=== PATIENT | female | born 1980 | race Caucasian/White ===

== ENCOUNTER 2016-08-04 13:48 | Emergency (ER) | payer BC ==
--- NOTE | 2016-08-04 14:18 | ERPHSYRPT ---
- History of Present Illness Time Seen by Provider: 08/04/16 14:12 Historian: patient Exam Limitations: no limitations Patient Subjective Stated Complaint: Pt was seen at [facility] at 800 this morning and diagnosed with a kidney stone on the right side. She was given a shot of torodol but no rx for pain medication. She states approx 1 hour ago the pain became unbearable, and she is having difficulties urinating. Triage Nursing Assessment: Pt alert and oriented x3. skin pink warm and dry. afebrile. pt appears to be in a great deal of pain - restless, tearful, pacing. pt states pain gets worse when sitting Physician History: The patient is a 36-year-old female with her mother complaining of a sudden onset of right flank pain that began at 4:30 AM this morning. She was seen in [facility] at 8 AM and was given a Toradol injection for a likely kidney stone. The pain has continued to worsen. She denies nausea or vomiting or diarrhea. She's had a kidney stone in the past that was surgically removed about 3 years ago. She has high blood pressure. Her surgical history is significant for appendectomy and cholecystectomy. Timing/Duration: today, hour(s) (10) Activities at Onset: sleep Quality: sharpness Abdominal Pain Onset Location: flank (right) Pain Radiation: no radiation Severity of Pain-Max: severe Severity of Pain-Current: severe Modifying Factors: Improves With: analgesics Associated Symptoms: denies symptoms Previous symptoms: same symptoms as today Allergies/Adverse Reactions: clemastine fumarate [From Tavist-D] Allergy (Unknown, Verified 08/04/16 13:53) phenylpropanolamine HCl [From Tavist-D] Allergy (Unknown, Verified 08/04/16 13: 53) Home Medications: Amlodipine Besylate 5 mg [Norvasc 5 mg] 5 mg PO DAILY 06/11/12 [History] Lansoprazole [Prevacid] 30 mg PO DAILY 06/11/12 [History] Losartan/Hydrochlorothiazide [Hyzaar 100-12.5 Tablet] 1 each PO DAILY 06/11/12 [ History] Norgestimate-Ethinyl Estradiol [Tri-Sprintec] 1 each PO DAILY 06/11/12 [History] Hx Tetanus, Diphtheria Vaccination/Date Given: (unknown) Hx Influenza Vaccination/Date Given: Yes Hx Pneumococcal Vaccination/Date Given: No - Review of Systems Constitutional: No Fever, No Chills Eyes: No Symptoms Ears, Nose, & Throat: No Symptoms Respiratory: No Cough, No Dyspnea Cardiac: No Chest Pain, No Edema, No Syncope Abdominal/Gastrointestinal: Abdominal Pain Genitourinary Symptoms: Flank Pain, No Dysuria Musculoskeletal: No Back Pain, No Neck Pain Skin: No Rash Neurological: No Dizziness, No Focal Weakness, No Sensory Changes Psychological: No Symptoms Endocrine: No Symptoms Hematologic/Lymphatic: No Symptoms Immunological/Allergic: No Symptoms All Other Systems: Reviewed and Negative - Past Medical History Pertinent Past Medical History: Yes Neurological History: No Pertinent History ENT History: No Pertinent History Cardiac History: Hypertension Respiratory History: No Pertinent History Endocrine Medical History: Diabetes Type II Musculoskeletal History: No Pertinent History GI Medical History: Pancreatitis History: No Pertinent History Psycho-Social History: No Pertinent History Female Reproductive Disorders: No Pertinent History Other Medical History: kidney stones - Past Surgical History Past Surgical History: Yes Neuro Surgical History: No Pertinent History Cardiac: No Pertinent History Respiratory: No Pertinent History Gastrointestinal: Appendectomy, Cholecystectomy Genitourinary: No Pertinent History Musculoskeletal: Other Female Surgical History: No Pertinent History Other Surgical History: knee scoped 3 x, lithotripsy - Social History Smoking Status: Never smoker Exposure to second hand smoke: No Drug Use: none Patient Lives Alone: Yes - Female History Hx Last Menstrual Period: 3 weeks ago - Nursing Vital Signs Nursing Vital Signs: Initial Vital Signs Temperature 99 F Pulse Rate 101 Respiratory Rate 16 Blood Pressure [Left Arm] 134/71 Pain Intensity 10 - Physical Exam General Appearance: moderate distress Eye Exam: PERRL/EOMI, eyes nml inspection Ears, Nose, Throat Exam: normal ENT inspection, pharynx normal, moist mucous membranes Neck Exam: normal inspection, non-tender, supple, full range of motion Respiratory Exam: normal breath sounds, lungs clear, No respiratory distress Cardiovascular Exam: regular rate/rhythm, normal heart sounds Gastrointestinal/Abdomen Exam: soft, No tenderness, No mass Pelvic Exam: not done Rectal Exam: not done Back Exam: CVA tenderness (right) Extremity Exam: normal inspection, normal range of motion, pelvis stable Neurologic Exam: alert, oriented x 3, cooperative, normal mood/affect, nml cerebellar function, sensation nml, No motor deficits Skin Exam: normal color, warm, dry SpO2 Interpretation: normal SpO2: 99 Oxygen Delivery: Room Air - CT Exams Abdomen/Pelvis CT Interpretation: Tele-radiologist Report, Other (new 3 - 4 mm calculus in distal right ureter. No significant hydronephrosis. Per Dr Hernandez.) Ordered Tests: Active Orders 24 hr Category Date Time Status IV Insertion STAT Care 08/04/16 14:20 Active ABDOMEN AND PELVIS W/0 CONTRAS [CT] Stat Exams 08/04/16 15:00 Taken CBC W DIFF Stat Lab 08/04/16 14:25 Completed CMP Stat Lab 08/04/16 14:25 Completed CULTURE,URINE Stat Lab 08/04/16 14:30 Received HCG QUALITATIVE,SERUM Stat Lab 08/04/16 14:25 Completed LIPASE Stat Lab 08/04/16 14:25 Completed Lactic Acid Stat Lab 08/04/16 14:28 Completed UA W/ MICROSCOPIC Stat Lab 08/04/16 14:30 Completed Medication Summary Generic Name Dose Route Start Last Admin Trade Name Freq PRN Reason Stop Dose Admin Tamsulosin HCl 0.4 mg 08/05/16 10:00 08/04/16 14:33 Flomax 0.4 Mg PO 09/04/16 09:59 0.4 mg DAILY SUMMER Administration Discontinued Medications Generic Name Dose Route Start Last Admin Trade Name Freq PRN Reason Stop Dose Admin Hydromorphone HCl 2 mg 08/04/16 14:20 08/04/16 14:33 Hydromorphone 1 Mg/Ml Ampule IV 08/04/16 14:21 2 mg STAT ONE Administration Hydromorphone HCl Confirm 08/04/16 14:25 Hydromorphone 1 Mg/Ml Ampule Administered 08/04/16 14:26 Dose 2 mg .ROUTE .STK-MED ONE Sodium Chloride 1,000 mls @ 999 mls/hr 08/04/16 14:20 08/04/16 14:32 Sodium Chloride 0.9% 1000 Ml IV 08/04/16 15:20 999 mls/hr .Q1H1M STA Administration Sodium Chloride Confirm 08/04/16 14:25 Sodium Chloride 0.9% 1000 Ml Administered 08/04/16 14:26 Dose 1,000 mls @ ud .ROUTE .STK-MED ONE Ondansetron HCl 4 mg 08/04/16 14:20 08/04/16 14:32 Zofran 4 Mg/2 Ml Vial IV 08/04/16 14:21 4 mg STAT ONE Administration Ondansetron HCl Confirm 08/04/16 14:24 Zofran 4 Mg/2 Ml Vial Administered 08/04/16 14:25 Dose 4 mg .ROUTE .STK-MED ONE Tamsulosin HCl Confirm 08/04/16 14:24 Flomax 0.4 Mg Administered 08/04/16 14:25 Dose 0.4 mg .ROUTE .STK-MED ONE Lab/Rad Data: Laboratory Result Diagrams 08/04/16 14:25 08/04/16 14:25 Laboratory Results 08/04/16 08/04/16 08/04/16 Range/Units 14:30 14:28 14:25 WBC (4.0-10.5) K/mm3 RBC (4.1-5.4) M/mm3 Hgb (12.0-16.0) gm/dl Hct (35-47) % MCV (78-100) fl MCH (26-32) pg MCHC (32-36) g/dl RDW (11.5-14.0) % Plt Count (150-450) K/mm3 MPV (6-9.5) fl Gran % (36.0-66.0) % Lymphocytes % (24.0-44.0) % Monocytes % (0.0-12.0) % Eosinophils % (0.00-5.0) % Basophils % (0.0-0.4) % Basophils # (0-0.4) Sodium (136-145) mEq/L Potassium (3.5-5.1) mEq/L Chloride (98-107) mEq/L Carbon Dioxide (21-32) mEq/L Anion Gap (5-15) MEQ/L BUN (9-20) mg/dL Creatinine (0.55-1.30) mg/dl Estimated GFR ML/MIN Glucose (70-110) MG/DL Lactic Acid 1.4 (0.4-2.0) Calcium (8.5-10.1) mg/dL Total Bilirubin (0.2-1.0) mg/dL AST (15-37) U/L ALT (12-78) U/L Alkaline Phosphatase (46-116) U/L Serum Total Protein (6.4-8.2) gm/dL Albumin (3.4-5.0) g/dL Lipase (73-393) U/L Serum , Qual NEGATIVE (Negative) Ur Collection Type VOID Urine Color YELLOW (YELLOW) Urine Appearance SLIGHTLY CLOUDY (CLEAR) Urine pH 5.5 (5-6) Ur Specific [place] 1.010 (1.005-1.025) Urine Protein 30 (Negative) Urine Glucose (UA) 100 (NEGATIVE) mg/dL Urine Ketones TRACE (NEGATIVE) Urine Nitrite NEGATIVE (NEGATIVE) Urine Bilirubin NEGATIVE (NEGATIVE) Urine Urobilinogen 0.2 (0-1) mg/dL Urine WBC (Auto) NEGATIVE (NEGATIVE) Urine RBC (Auto) LARGE (0-5) Oliver/ul Urine Microscopic RBC >100 (0-2) /HPF Ur Epithelial Cells FEW (FEW) /HPF Urine Bacteria FEW (NEGATIVE) /HPF Specimen Received 08/04/16 1430 08/04/16 08/04/16 Range/Units 14:25 14:25 WBC 11.1 H (4.0-10.5) K/mm3 RBC 4.69 (4.1-5.4) M/mm3 Hgb 11.0 L (12.0-16.0) gm/dl Hct 35.2 (35-47) % MCV 75.1 L (78-100) fl MCH 23.4 L (26-32) pg MCHC 31.3 L (32-36) g/dl RDW 15.9 H (11.5-14.0) % Plt Count 440 (150-450) K/mm3 MPV 9.0 (6-9.5) fl Gran % 67.2 H (36.0-66.0) % Lymphocytes % 21.4 L (24.0-44.0) % Monocytes % 7.9 (0.0-12.0) % Eosinophils % 3.2 (0.00-5.0) % Basophils % 0.3 (0.0-0.4) % Basophils # 0.03 (0-0.4) Sodium 134 L (136-145) mEq/L Potassium 3.4 L (3.5-5.1) mEq/L Chloride 96 L (98-107) mEq/L Carbon Dioxide 27.2 (21-32) mEq/L Anion Gap 14.6 (5-15) MEQ/L BUN 16 (9-20) mg/dL Creatinine 1.02 (0.55-1.30) mg/dl Estimated GFR > 60 ML/MIN Glucose 161 H (70-110) MG/DL Lactic Acid (0.4-2.0) Calcium 9.3 (8.5-10.1) mg/dL Total Bilirubin 0.30 (0.2-1.0) mg/dL AST 10 L (15-37) U/L ALT 16 (12-78) U/L Alkaline Phosphatase 73 (46-116) U/L Serum Total Protein 7.7 (6.4-8.2) gm/dL Albumin 3.4 (3.4-5.0) g/dL Lipase 181 (73-393) U/L Serum , Qual (Negative) Ur Collection Type Urine Color (YELLOW) Urine Appearance (CLEAR) Urine pH (5-6) Ur Specific [place] (1.005-1.025) Urine Protein (Negative) Urine Glucose (UA) (NEGATIVE) mg/dL Urine Ketones (NEGATIVE) Urine Nitrite (NEGATIVE) Urine Bilirubin (NEGATIVE) Urine Urobilinogen (0-1) mg/dL Urine WBC (Auto) (NEGATIVE) Urine RBC (Auto) (0-5) Oliver/ul Urine Microscopic RBC (0-2) /HPF Ur Epithelial Cells (FEW) /HPF Urine Bacteria (NEGATIVE) /HPF Specimen Received - Progress Progress: improved Counseled pt/family regarding: lab results, diagnosis, need for follow-up, rad results - Departure Time of Disposition: 16:21 Departure Disposition: Home Clinical Impression: Ureterolithiasis Condition: Stable Critical Care Time: No Additional Instructions: You have a 3 mm kidney stone in the distal segment of your right ureter. The stone is almost into the bladder. You were given IV fluids, Dilaudid 2 mg, Zofran 4 mg by IV, and Flomax 0.4 mg in the ER. Stay well hydrated. Take Ferron one tablet every 4 hours as needed for pain. Strain the urine. Follow- up next week. If the condition worsens, please return to the ER. Prescriptions: Hydrocodone Bit/Acetaminophen [Ferron 5-325 Tablet] 1 each PO Q4H PRN PRN #15 tablet PRN Reason: Pain
[2016-08-04] MEDS ORDERED: Sodium Chloride 0.9% 1000 ML 1,000 ML IV STA (14:20)
[2016-08-04] MEDS ORDERED: Hydromorphone 1 mg/ml Ampule IV ONE (14:20)
[2016-08-04] MEDS ORDERED: Zofran 4 MG/2 ML VIAL IV ONE (14:20)
[2016-08-04] MEDS ORDERED: Flomax 0.4 MG ONE (14:24)
[2016-08-04] MEDS ORDERED: Zofran 4 MG/2 ML VIAL ONE (14:24)
[2016-08-04] MEDS ORDERED: Sodium Chloride 0.9% 1000 ML 1,000 ML ONE (14:25)
[2016-08-04] MEDS ORDERED: Hydromorphone 1 mg/ml Ampule ONE (14:25)
[2016-08-04 14:36] LABS: BASOPHIL % 0.3 % (0.0-0.4); Eosinophil % 3.2 % (0.00-5.0); Granulocytes % 67.2 % (36.0-66.0); Lymphocytes % 21.4 % (24.0-44.0); Mean Cell Volume 75.1 fl (78-100); Monocytes % 7.9 % (0.0-12.0); Platelet Count 440 K/mm3 (150-450); Red Blood Count 4.69 M/mm3 (4.1-5.4); Red Cell Distribution Width 15.9 % (11.5-14.0); White Blood Count 11.1 K/mm3 (4.0-10.5)
[2016-08-04 14:37] LABS: Mean Corpuscular Hemoglobin 23.4 pg (26-32)
[2016-08-04 14:42] LABS: ADD URINE CULTURE? YES (NO); Bacteria FEW /HPF (NEGATIVE); COMPLETE URINE MICROSCOPIC? YES; Collection Type VOID; Epithelial Cells FEW /HPF (FEW); Ph 5.5 (5-6)
[2016-08-04 14:52] LABS: ALBUMIN 3.4 g/dL (3.4-5.0); ALKALINE PHOSPHATASE 73 U/L (46-116); ANION GAP 14.6 MEQ/L (5-15); BLOOD UREA NITROGEN 16 mg/dL (9-20); CHLORIDE 96 mEq/L (98-107); Carbon Dioxide 27.2 mEq/L (21-32); Glucose 161 MG/DL (70-110); LIPASE 181 U/L (73-393); Potassium 3.4 mEq/L (3.5-5.1); SGOT/AST 10 U/L (15-37); SGPT/ALT 16 U/L (12-78); SODIUM 134 mEq/L (136-145); Total Protein 7.7 gm/dL (6.4-8.2)
[2016-08-04 16:41] VITALS: BP 126/77; PULSE 88; O2SAT 97
--- NOTE | 2016-08-04 20:12 | XRAY ---
Indication: Right abdominal pain. History kidney stone. Multiple contiguous axial images obtained through the abdomen and pelvis without using renal stone protocol. Comparison: June 11, 2012. Lung bases demonstrates lingular fibrosis/scarring. Heart is not enlarged. New 3-4 mm distal right ureter calculus approximately 1-2 cm proximal to the UVJ. No significant hydronephrosis/hydroureter. Stable nonobstructing left renal micro-calculus. Noncontrasted stomach and bowel loops appear nonobstructed. Minimal descending diverticulosis without diverticulitis. Again previous cholecystectomy and appendectomy. No free fluid/air. Remaining liver, pancreas, spleen, adrenal glands, kidneys, ureters, bladder, uterus, and aorta appear unremarkable for noncontrast exam. Osseous structures intact again with minimal spinal degenerative changes. Small fatty umbilical hernia. Impression: 1. New 3-4 mm distal right ureter calculus without significant obstructive uropathy. Stable nonobstructing left renal micro-calculus. 2. Incidental minimal descending colonic diverticulosis and fatty umbilical hernia. CTDI 23.68
[2016-08-05] MEDS ORDERED: Flomax 0.4 MG PO SCH (10:00)
== END 2016-08-04 16:41 | disposition home or self-care (01) ==
LOC: ED 13:48
DX: N20.1 Calculus of ureter (principal); R10.9 Unspecified abdominal pain; I10 Essential (primary) hypertension; E11.9 Type 2 diabetes mellitus without complications
CPT/HCPCS: 36000; 36415; 74176; 80053; 81000; 83605; 83690; 84703; 85025; 87086; 96360; 96374; 96375; 99283; 99284; J1170; J2405; A9270-GY

== ENCOUNTER 2020-11-30 17:04 | Observation (INO) | payer OTHER ==
[2020-11-30] MEDS ORDERED: Ventolin Hfa MDI IH ONE (17:24)
[2020-11-30] MEDS ORDERED: VENTOLIN COMMON CANISTER IH ONE (17:30)
[2020-11-30 17:39] LABS: Absolute Neutrophil Ct (ANC) 10.75 (1.4-6.9); BASOPHIL % 0.3 % (0.0-0.4); Basophil (Absolute #) 0.04 (0-0.4); Eosinophil % 3.6 % (0.00-5.0); Eosinophil (Absolute #) 0.51 (0-0.5); Hematocrit 42.4 % (35-47); Lymphocyte (Absolute #) 2.22 (1.0-4.6); Lymphocytes % 15.6 % (24.0-44.0); Mean Cell Volume 87.6 fl (78-100); Mean Corpuscular Hemoglobin 28.9 pg (26-32); Monocyte (Absolute #) 0.75 (0.0-1.3); Monocytes % 5.3 % (0.0-12.0); Neutrophil % 75.2 % (36.0-66.0); Platelet Count 333 K/mm3 (150-450); Red Blood Count 4.84 M/mm3 (4.1-5.4); Red Cell Distribution Width 15.6 % (11.5-14.0); White Blood Count 14.3 K/mm3 (4.0-10.5)
[2020-11-30 17:54] LABS: PROTIME 11.8 SECONDS (9.4-12.5)
[2020-11-30 17:57] LABS: PTT 29.5 SECONDS (25.1-36.5)
[2020-11-30 18:10] LABS: ALBUMIN 4.4 g/dL (3.5-5.0); ALKALINE PHOSPHATASE 50 U/L (38-126); ANION GAP 16.8 MEQ/L (5-15); BLOOD UREA NITROGEN 9 mg/dL (7-17); CHLORIDE 96 mmol/L (98-107); Calcium 9.6 mg/dL (8.4-10.2); Carbon Dioxide 25 mmol/L (22-30); Creatinine 1 0.62 mg/dL (0.52-1.04); EST GLOMERULAR FILTRATION RATE > 60.0 ML/MIN; Glucose 284 mg/dL (74-106); NT PRO BNP 114 pg/mL (0-450); Potassium 3.7 mmol/L (3.5-5.1); SGOT/AST 19 U/L (14-36); SGPT/ALT 20 U/L (0-35); SODIUM 134 mmol/L (137-145); Total Protein 7.5 g/dL (6.3-8.2)
[2020-11-30] MEDS ORDERED: DECADRON 10MG INJ. ONE (18:23)
[2020-11-30] MEDS ORDERED: Magnesium 1 Gm / 100 Ml D5W*** 200 ML IV ONE (18:23)
[2020-11-30] MEDS ORDERED: DECADRON 10MG INJ. IV ONE ×2 (18:23→18:25)
[2020-11-30] MEDS: Magnesium 1 Gm / 100 Ml D5W*** 100 ML IV SCH (18:26)
[2020-11-30] MEDS ORDERED: Magnesium Sulfate 1 GM/2 ML VIAL IV ONE (18:30)
[2020-11-30] MEDS ORDERED: DUONEB 0.5-3 MG/3 ml Neb IH ONE ×2 (20:24→20:48)
--- NOTE | 2020-11-30 20:47 | ERPHSYRPT ---
- History of Present Illness Source: patient Exam Limitations: clinical condition Patient Subjective Stated Complaint: SOB and COVID sx. Triage Nursing Assessment: pt to ED c/o SOB x 1 week with associated covid sx. 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 94% RA, tachepnic, audible wheezing noted on exp. crackles throughout lung st[place] bilaterally. denies pain at this time. other c/o include cough, chest congestion, nasal congestion, body aches/fatigue. Physician History: 40 yo wf w cough/nasal congestion/dyspnea x1wk. Pt is fully vaccinated w Pfizer and had a neg CV19 test last wk in [place] and was tested yesterday. She is on amoxcillin. She has a mild BEYER but denies N/V/D/fever/chest pain. Timing/Duration: other (1wk) Cough Quality/Degree: dry cough Possible Cause: no prior episodes Modifying Factors: Improves With: activity Associated Symptoms: cough, nasal congestion, shortness of breath, wheezing, No fever, No chills, No chest pain/soreness, No dizziness, No earache, No facial pain, No headache, No lightheadedness, No muscle aches, No nasal drainage, No sinus infection, No sore throat Allergies/Adverse Reactions: clemastine fumarate [From Tavist-D] Allergy (Unknown, Verified 11/30/20 17:12) phenylpropanolamine HCl [From Tavist-D] Allergy (Unknown, Verified 11/30/20 17:12) Home Medications: Amlodipine Besylate 5 mg [Norvasc 5 mg] 5 mg PO DAILY 06/11/12 [History] Lansoprazole [Prevacid] 30 mg PO DAILY 06/11/12 [History] Losartan/Hydrochlorothiazide [Hyzaar 100-12.5 Tablet] 1 each PO DAILY 06/11/12 [History] Norgestimate-Ethinyl Estradiol [Tri-Sprintec] 1 each PO DAILY 06/11/12 [History] Hx Tetanus, Diphtheria Vaccination/Date Given: Yes (unknown) Hx Influenza Vaccination/Date Given: Yes Hx Pneumococcal Vaccination/Date Given: No Immunizations Up to Date: Yes Travel Risk - International Travel Have you traveled outside of the country in past 3 weeks: No - Coronavirus Screening Are you exhibiting any of the following symptoms?: Yes Symptoms: Cough: New Onset, Shortness of Breath, Headaches/Body Aches/Fatigue Close contact with a COVID-19 positive Pt in past 14-21 Days: No - Vaccine Status Have you recieved a Covid-19 vaccination: Yes [employer]: Unknown - Vaccination Dates Dates if Unknown: 2 doses, unkn when - Review of Systems Constitutional: No Symptoms Eyes: No Symptoms Ears, Nose, & Throat: No Symptoms, Nose Congestion, Nose Discharge Respiratory: No Symptoms, Cough, Dyspnea, Wheezing Cardiac: No Symptoms Abdominal/Gastrointestinal: No Symptoms Genitourinary Symptoms: No Symptoms Musculoskeletal: No Symptoms Skin: No Symptoms Neurological: No Symptoms Psychological: No Symptoms Endocrine: No Symptoms Hematologic/Lymphatic: No Symptoms Immunological/Allergic: No Symptoms - Past Medical History Pertinent Past Medical History: Yes Neurological History: No Pertinent History ENT History: No Pertinent History Cardiac History: Hypertension Respiratory History: No Pertinent History Endocrine Medical History: Diabetes Type II Musculoskeletal History: No Pertinent History GI Medical History: Pancreatitis History: No Pertinent History Psycho-Social History: No Pertinent History Female Reproductive Disorders: No Pertinent History Other Medical History: kidney stones - Past Surgical History Past Surgical History: Yes Neuro Surgical History: No Pertinent History Cardiac: No Pertinent History Respiratory: No Pertinent History Gastrointestinal: Appendectomy, Cholecystectomy Genitourinary: No Pertinent History Musculoskeletal: Other Female Surgical History: No Pertinent History Other Surgical History: knee scoped 3 x, lithotripsy - Social History Smoking Status: Never smoker Exposure to second hand smoke: No Drug Use: none Patient Lives Alone: Yes Significant Family History: no pertinent family hx - Female History Hx Last Menstrual Period: 1 month ago Hx Now: No - Nursing Vital Signs Nursing Vital Signs: Initial Vital Signs Temperature 98.4 F 11/30/20 17:05 Pulse Rate 119 H 11/30/20 17:05 Respiratory Rate 30 H 11/30/20 17:05 Blood Pressure 181/124 11/30/20 17:05 O2 Sat by Pulse Oximetry 94 L 11/30/20 17:05 Pain Scale Pain Intensity 0 Hypertensive - Physical Exam General Appearance: mild distress Eye Exam: PERRL/EOMI, eyes nml inspection Ears, Nose, Throat Exam: normal ENT inspection, TMs normal, pharynx normal, moist mucous membranes Neck Exam: normal inspection, non-tender, supple, full range of motion, No meningismus, No mass, No Brudzinski, No Kernig's, No carotid bruit Respiratory Exam: respiratory distress (Mild w decreased breath sounds B and scattered wheezes) Cardiovascular Exam: tachycardia Gastrointestinal/Abdomen Exam: soft, normal bowel sounds, No tenderness Back Exam: normal inspection, normal range of motion Extremity Exam: normal inspection, normal range of motion Neurologic Exam: alert, oriented x 3, cooperative, cpc coder II-XII nml as tested, normal mood/affect, nml cerebellar function, nml station & gait, sensation nml, No motor deficits, No sensory deficit Skin Exam: normal color, warm, dry Lymphatic Exam: No adenopathy SpO2 Interpretation: normal SpO2: 95 O2 Delivery: Nasal Cannula - Course Nursing assessment & vital signs reviewed: Yes EKG Interpreted by Me: RATE (Sinus tach/Prolonged QTc/Nonspecific ST-Twave changes) Ordered Tests: Active Orders 24 hr Category Date Time Status EKG-ER Only STAT Care 11/30/20 17:25 Completed Heart-Healthy Diet Diet 11/30/20 Breakfast Active CHEST 1 VIEW (PORTABLE) Stat Exams 11/30/20 17:25 Taken CHEST WITH CONTRAST [CT] Stat Exams 11/30/20 20:06 Taken CBC W DIFF AM.LAB Lab 12/01/20 04:00 Ordered CBC W DIFF Stat Lab 11/30/20 17:24 Completed CMP AM.LAB Lab 12/01/20 04:00 Ordered CMP Stat Lab 11/30/20 17:35 Completed D-DIMER QUANTITATIVE Stat Lab 11/30/20 18:44 Completed Lactic Acid AM.LAB Lab 12/01/20 04:00 Ordered Lactic Acid Stat Lab 11/30/20 17:45 Completed Lactic Acid Stat Lab 11/30/20 19:49 Completed NT PRO BNP Stat Lab 11/30/20 17:35 Completed PROTIME WITH INR Stat Lab 11/30/20 17:35 Completed PTT Stat Lab 11/30/20 17:35 Completed TROPONIN Q3H Lab 11/30/20 17:35 Completed TROPONIN Q3H Lab 11/30/20 20:30 Completed TROPONIN Q3H Lab 11/30/20 23:30 Ordered TROPONIN Q3H Lab 12/01/20 02:30 Ordered TROPONIN Q3H Lab 12/01/20 05:30 Ordered Transfer Order Routine Transfer 11/30/20 Completed Medication Summary Generic Name Dose Route Start Last Admin Trade Name Freq PRN Reason Stop Dose Admin Albuterol/Ipratropium 3 ml 11/30/20 23:00 11/30/20 22:09 Duoneb 0.5-3 Mg/3 Ml Neb IH 12/30/20 22:59 3 ml Q4HRT SUMMER Administration Dexamethasone Sodium Phosphate 4 mg 12/01/20 10:00 Decadron 4 Mg Inj IV 12/31/20 09:59 DAILY SUMMER Enoxaparin Sodium 40 mg 12/01/20 10:00 Enoxaparin Sodium SQ 12/31/20 09:59 DAILY SUMMER Sodium Chloride 1,000 mls @ 100 mls/hr 11/30/20 21:15 Sodium Chloride 0.9% 1000 Ml IV 12/30/20 21:14 .Q10H SUMMER Azithromycin 500 mg in 250 mls @ 250 mls/hr 12/01/20 10:00 Zithromax 500 Mg/ 250 Ml Nacl Premix IV 12/31/20 09:59 Q24H10 SUMMER Ceftriaxone Sodium/Dextrose 1 g in 50 mls @ 100 mls/hr 12/01/20 10:00 Rocephin 1 Gm-D5w 50 Ml Bag IV 12/04/20 09:59 Q24H10 SUMMER Insulin Human Lispro 0 unit 11/30/20 21:04 Humalog SQ 12/30/20 21:03 UD PRN HYPERGLYCEMIA Ondansetron HCl 4 mg 11/30/20 21:04 Zofran 4 Mg/2 Ml Vial IV 12/30/20 21:03 Q6H PRN PRN NAUSEA/VOMITING Pantoprazole Sodium 40 mg 12/01/20 10:00 Protonix 40 Mg Iv IV 12/31/20 09:59 Q24H10 SUMMER Discontinued Medications Generic Name Dose Route Start Last Admin Trade Name Freq PRN Reason Stop Dose Admin Albuterol Sulfate 8 gm 11/30/20 17:24 11/30/20 17:33 Ventolin Hfa Mdi IH 11/30/20 17:25 Not Given STAT ONE Albuterol Sulfate 4 puff 11/30/20 17:30 11/30/20 17:33 Ventolin Common Canister 11/30/20 17:31 4 puff STAT ONE Administration Albuterol/Ipratropium Confirm 11/30/20 20:24 Duoneb 0.5-3 Mg/3 Ml Neb Administered 11/30/20 20:25 Dose 3 ml IH .STK-MED ONE Albuterol/Ipratropium 3 ml 11/30/20 20:48 11/30/20 20:15 Duoneb 0.5-3 Mg/3 Ml Neb IH 11/30/20 20:49 3 ml STAT ONE Administration Dexamethasone Sodium Phosphate 10 mg 11/30/20 18:23 11/30/20 18:26 Decadron 10mg Inj. IV 11/30/20 18:24 10 mg STAT ONE Administration Dexamethasone Sodium Phosphate Confirm 11/30/20 18:23 Decadron 10mg Inj. Administered 11/30/20 18:24 Dose 10 mg .ROUTE .STK-MED ONE Dexamethasone Sodium Phosphate 10 mg 11/30/20 18:25 11/30/20 18:27 Decadron 10mg Inj. IV 11/30/20 18:26 Not Given STAT ONE Magnesium Sulfate/Dextrose Confirm 11/30/20 18:23 Magnesium 1 Gm / 100 Ml D5w Administered 11/30/20 18:24 Dose 200 mls @ ud IV .STK-MED ONE Magnesium Sulfate/Dextrose 100 mls @ 100 mls/hr 11/30/20 18:30 11/30/20 18:26 Magnesium 1 Gm / 100 Ml D5w IV 11/30/20 20:29 100 mls/hr Q1H SUMMER Administration Ceftriaxone Sodium/Dextrose 1 g in 50 mls @ 100 mls/hr 11/30/20 20:53 11/30/20 21:01 Rocephin 1 Gm-D5w 50 Ml Bag IV 11/30/20 21:22 100 mls/hr STAT STA 100 mls/hr Administration Ceftriaxone Sodium/Dextrose Confirm 11/30/20 20:54 Rocephin 1 Gm-D5w 50 Ml Bag Administered 11/30/20 20:55 Dose 1 g in 50 mls @ ud IV .STK-MED ONE Sodium Chloride 1,000 mls @ 999 mls/hr 11/30/20 21:16 11/30/20 21:18 Sodium Chloride 0.9% 1000 Ml IV 11/30/20 22:16 999 mls/hr .Q1H1M STA Administration Magnesium Sulfate 2 gm 11/30/20 18:30 11/30/20 18:26 Magnesium Sulfate 1 Gm/2 Ml Vial IV 11/30/20 18:31 Not Given ONCE ONE Lab/Rad Data: Laboratory Result Diagrams 11/30/20 17:24 11/30/20 17:35 Laboratory Results 11/30/20 11/30/20 11/30/20 Range/Units 20:30 19:49 18:46 WBC (4.0-10.5) K/mm3 RBC (4.1-5.4) M/mm3 Hgb (12.0-16.0) gm/dl Hct (35-47) % MCV (78-100) fl MCH (26-32) pg MCHC (32-36) g/dl RDW (11.5-14.0) % Plt Count (150-450) K/mm3 MPV (7.5-11.0) fl Gran % (36.0-66.0) % Eos # (Auto) (0-0.5) Absolute Lymphs (auto) (1.0-4.6) Absolute Monos (auto) (0.0-1.3) Lymphocytes % (24.0-44.0) % Monocytes % (0.0-12.0) % Eosinophils % (0.00-5.0) % Basophils % (0.0-0.4) % Absolute Granulocytes (1.4-6.9) Basophils # (0-0.4) PT (9.4-12.5) SECONDS INR (0.8-3.0) APTT (25.1-36.5) SECONDS D-Dimer (215-500) ng/mL Sodium (137-145) mmol/L Potassium (3.5-5.1) mmol/L Chloride (98-107) mmol/L Carbon Dioxide (22-30) mmol/L Anion Gap (5-15) MEQ/L BUN (7-17) mg/dL Creatinine (0.52-1.04) mg/dL Estimated GFR ML/MIN Glucose (74-106) mg/dL Lactic Acid 2.8 H (0.4-2.0) Calcium (8.4-10.2) mg/dL Total Bilirubin (0.2-1.3) mg/dL AST (14-36) U/L ALT (0-35) U/L Alkaline Phosphatase (38-126) U/L Troponin I < 0.012 (0.000-0.034) ng/mL NT-Pro-B Natriuret Pep (0-450) pg/mL Serum Total Protein (6.3-8.2) g/dL Albumin (3.5-5.0) g/dL SARS-CoV-2 (PCR) NEGATIVE (NEGATIVE) 11/30/20 11/30/20 11/30/20 Range/Units 18:44 17:45 17:35 WBC (4.0-10.5) K/mm3 RBC (4.1-5.4) M/mm3 Hgb (12.0-16.0) gm/dl Hct (35-47) % MCV (78-100) fl MCH (26-32) pg MCHC (32-36) g/dl RDW (11.5-14.0) % Plt Count (150-450) K/mm3 MPV (7.5-11.0) fl Gran % (36.0-66.0) % Eos # (Auto) (0-0.5) Absolute Lymphs (auto) (1.0-4.6) Absolute Monos (auto) (0.0-1.3) Lymphocytes % (24.0-44.0) % Monocytes % (0.0-12.0) % Eosinophils % (0.00-5.0) % Basophils % (0.0-0.4) % Absolute Granulocytes (1.4-6.9) Basophils # (0-0.4) PT (9.4-12.5) SECONDS INR (0.8-3.0) APTT (25.1-36.5) SECONDS D-Dimer 665 H* (215-500) ng/mL Sodium (137-145) mmol/L Potassium (3.5-5.1) mmol/L Chloride (98-107) mmol/L Carbon Dioxide (22-30) mmol/L Anion Gap (5-15) MEQ/L BUN (7-17) mg/dL Creatinine (0.52-1.04) mg/dL Estimated GFR ML/MIN Glucose (74-106) mg/dL Lactic Acid 3.8 H (0.4-2.0) Calcium (8.4-10.2) mg/dL Total Bilirubin (0.2-1.3) mg/dL AST (14-36) U/L ALT (0-35) U/L Alkaline Phosphatase (38-126) U/L Troponin I < 0.012 (0.000-0.034) ng/mL NT-Pro-B Natriuret Pep (0-450) pg/mL Serum Total Protein (6.3-8.2) g/dL Albumin (3.5-5.0) g/dL SARS-CoV-2 (PCR) (NEGATIVE) 11/30/20 11/30/20 11/30/20 Range/Units 17:35 17:35 17:24 WBC 14.3 H (4.0-10.5) K/mm3 RBC 4.84 (4.1-5.4) M/mm3 Hgb 14.0 (12.0-16.0) gm/dl Hct 42.4 (35-47) % MCV 87.6 (78-100) fl MCH 28.9 (26-32) pg MCHC 33.0 (32-36) g/dl RDW 15.6 H (11.5-14.0) % Plt Count 333 (150-450) K/mm3 MPV 9.0 (7.5-11.0) fl Gran % 75.2 H (36.0-66.0) % Eos # (Auto) 0.51 H (0-0.5) Absolute Lymphs (auto) 2.22 (1.0-4.6) Absolute Monos (auto) 0.75 (0.0-1.3) Lymphocytes % 15.6 L (24.0-44.0) % Monocytes % 5.3 (0.0-12.0) % Eosinophils % 3.6 (0.00-5.0) % Basophils % 0.3 (0.0-0.4) % Absolute Granulocytes 10.75 H (1.4-6.9) Basophils # 0.04 (0-0.4) PT 11.8 (9.4-12.5) SECONDS INR 1.00 (0.8-3.0) APTT 29.5 (25.1-36.5) SECONDS D-Dimer (215-500) ng/mL Sodium 134 L (137-145) mmol/L Potassium 3.7 (3.5-5.1) mmol/L Chloride 96 L (98-107) mmol/L Carbon Dioxide 25 (22-30) mmol/L Anion Gap 16.8 H (5-15) MEQ/L BUN 9 (7-17) mg/dL Creatinine 0.62 (0.52-1.04) mg/dL Estimated GFR > 60.0 ML/MIN Glucose 284 H (74-106) mg/dL Lactic Acid (0.4-2.0) Calcium 9.6 (8.4-10.2) mg/dL Total Bilirubin 0.40 (0.2-1.3) mg/dL AST 19 (14-36) U/L ALT 20 (0-35) U/L Alkaline Phosphatase 50 (38-126) U/L Troponin I (0.000-0.034) ng/mL NT-Pro-B Natriuret Pep 114 (0-450) pg/mL Serum Total Protein 7.5 (6.3-8.2) g/dL Albumin 4.4 (3.5-5.0) g/dL SARS-CoV-2 (PCR) (NEGATIVE) - Progress Progress: improved Progress Note: 11/30/20 21:[address] Gutierres 11/30/20 21:02 Proventil HFA 2puffs x2 10mg IV Decadron Duoneb after neg CV19 1gm IV Rocephin 11/30/20 22:53 1L NS bolus Discussed with : Harley Counseled pt/family regarding: lab results, diagnosis, rad results - Departure Departure Disposition: Observation Clinical Impression: Pneumonia Condition: Stable Critical Care Time: Yes Critical Care Time(excluding separately billable procedures): Critical 30-74 mins
[2020-11-30] MEDS ORDERED: ROCEPHIN 1 Gm-D5w 50 ml Bag** 1 G/50 ML IVPB IV STA (20:53)
[2020-11-30] MEDS ORDERED: ROCEPHIN 1 Gm-D5w 50 ml Bag** 1 G/50 ML IVPB IV ONE (20:54)
[2020-11-30] MEDS ORDERED: Zofran 4 MG/2 ML VIAL IV PRN (21:04)
[2020-11-30] MEDS ORDERED: HUMALOG SQ PRN (21:04)
[2020-11-30] MEDS ORDERED: Sodium Chloride 0.9% 1000 ML 1,000 ML IV STA (21:16)
[2020-11-30] MEDS: DUONEB 0.5-3 MG/3 ml Neb IH SCH (22:09)
[2020-12-01] MEDS: Klor Con 10 MEQ PO SCH ×2 (00:03→21:18)
[2020-12-01] MEDS: HUMALOG SQ PRN ×5 (00:29→21:18)
[2020-12-01] MEDS: DUONEB 0.5-3 MG/3 ml Neb IH SCH ×5 (02:03→19:31)
[2020-12-01] MEDS: TYLENOL 325 MG PO PRN ×3 (02:11→18:31)
[2020-12-01 03:08] LABS: Absolute Neutrophil Ct (ANC) 13.18 (1.4-6.9); BASOPHIL % 0.1 % (0.0-0.4); Basophil (Absolute #) 0.02 (0-0.4); Eosinophil % 0.1 % (0.00-5.0); Eosinophil (Absolute #) 0.02 (0-0.5); Hematocrit 41.6 % (35-47); Hemoglobin 13.7 gm/dl (12.0-16.0); Lymphocyte (Absolute #) 0.62 (1.0-4.6); Lymphocytes % 4.4 % (24.0-44.0); Mean Cell Volume 87.8 fl (78-100); Mean Corpuscular Hemoglobin 28.9 pg (26-32); Mean Corpuscular Hgb Concent. 32.9 g/dl (32-36); Monocyte (Absolute #) 0.22 (0.0-1.3); Monocytes % 1.6 % (0.0-12.0); Neutrophil % 93.8 % (36.0-66.0); Platelet Count 315 K/mm3 (150-450); Red Blood Count 4.74 M/mm3 (4.1-5.4); Red Cell Distribution Width 15.4 % (11.5-14.0); White Blood Count 14.1 K/mm3 (4.0-10.5)
[2020-12-01 04:16] LABS: ALBUMIN 4.4 g/dL (3.5-5.0); ALKALINE PHOSPHATASE 58 U/L (38-126); ANION GAP 20.5 MEQ/L (5-15); BLOOD UREA NITROGEN 9 mg/dL (7-17); CHLORIDE 97 mmol/L (98-107); Calcium 9.5 mg/dL (8.4-10.2); Carbon Dioxide 19 mmol/L (22-30); EST GLOMERULAR FILTRATION RATE > 60.0 ML/MIN; Glucose 323 mg/dL (74-106); Potassium 4.3 mmol/L (3.5-5.1); SGOT/AST 26 U/L (14-36); SODIUM 132 mmol/L (137-145); Total Protein 7.5 g/dL (6.3-8.2)
[2020-12-01 04:22] LABS: SGPT/ALT 30 U/L (0-35)
--- NOTE | 2020-12-01 08:42 | PCM.HP ---
History of Present Illness - Chief Complaint Chief Complaint: Pneumonia History of Present Illness: is a 40 year old female with no local physician, she has had a cough and worsening illness for 3 weeks. she has had multiple covid tests that were negative including last night, she is fully vaccinated. She has a cough and worsening shortness of breath, she became very short of breath and presented to the ER last night, she had fever initially with ear and sinus symptoms, has been on augmentin. she is not a smoker, has no history of asthma. she is a diabetic and on hypertension meds, hx of iron def anemia with infusions via Dr Solis in the past. - Review of Systems Constitutional: No Fever, No Chills Eyes: No Symptoms Ears, Nose, & Throat: No Symptoms Respiratory: Cough, Short Of Breath Cardiac: No Chest Pain, No Edema, No Syncope Abdominal/Gastrointestinal: No Abdominal Pain, No Nausea, No Vomiting, No Diarrhea Genitourinary Symptoms: No Dysuria Skin: No Rash All Other Systems: Reviewed and Negative Medications & Allergies Home Medications: Home Medication List Amox Tr/Potass Clav. 875 mg [Augmentin 875-125 Tablet] 875 mg PO BID 11/30/20 [History Confirmed 11/30/20] Chlorthalidone 25 mg PO DAILY 11/30/20 [History Confirmed 11/30/20] Insulin Glargine,Hum.rec.anlog [Silvio Salas] 42 units SQ DAILY 11/30/20 [History Confirmed 11/30/20] Lansoprazole [Prevacid] 30 mg PO DAILY 11/30/20 [History Confirmed 11/30/20] Levothyroxine Sodium [Levothyroxine] 25 mcg PO DAILY 11/30/20 [History Confirmed 11/30/20] Liraglutide [Victoza 2-Fredrick] 1.8 units SQ DAILY 11/30/20 [History Confirmed 11/30/20] Nebivolol HCl [Bystolic] 10 mg PO DAILY 11/30/20 [History Confirmed 11/30/20] Non-Formulary Drug [Non-Formulary Bulk Item] 1 tab PO DAILY 11/30/20 [History Confirmed 11/30/20] Potassium Chloride 20 meq PO BID 11/30/20 [History Confirmed 11/30/20] Allergies/Adverse Reactions: Allergies Allergy/AdvReac Type Severity Reaction Status Date / Time clemastine fumarate Allergy Unknown Verified 11/30/20 17:12 [From Tavist-D] phenylpropanolamine HCl Allergy Unknown Verified 11/30/20 17:12 [From Tavist-D] - Past Medical History Past Medical History: Yes Neurological History: No Pertinent History ENT History: No Pertinent History Cardiac History: Hypertension Respiratory History: No Pertinent History Endocrine Medical History: Diabetes Type II Musculoskelatal History: No Pertinent History GI Medical History: Pancreatitis History: No Pertinent History Pyscho-Social History: No Pertinent History Reproductive Disorders: No Pertinent History Comment: kidney stones - Female History Hx Last Menstrual Period: 1 month ago Are you now?: No - Past Surgical History Past Surgical History: Yes Neuro Surgical History: No Pertinent History Cardiac History: No Pertinent History Respiratory Surgery: No Pertinent History GI Surgical History: Appendectomy, Cholecystectomy Genitourinary Surgical Hx: No Pertinent History Musculskeletal Surgical Hx: Other Female Surgical History: No Pertinent History Other Surgical History: knee scoped 3 x, lithotripsy - Social History Smoking Status: Never smoker Exposure to second hand smoke: No Alcohol: None Drug Use: none Significant Family History: no pertinent family hx - Physical Exam Vital Signs: Vital Signs - 24 hr Temp Pulse Resp BP Pulse Ox 12/01/20 08:23 95 H 21 95 12/01/20 07:56 96.4 F 105 H 18 141/78 94 L 12/01/20 03:41 97.8 F 108 H 26 H 132/66 94 L 12/01/20 02:05 106 H 24 94 L 11/30/20 22:53 95 11/30/20 22:30 97.9 F 120 H 20 141/73 97 11/30/20 22:10 102 H 20 96 11/30/20 20:15 107 H 24 94 L 11/30/20 20:00 109 H 28 H 155/92 95 11/30/20 19:00 87 28 H 149/91 94 L 11/30/20 18:21 107 H 30 H 135/89 94 L 11/30/20 18:20 98.4 F 107 H 28 H 135/89 94 L 11/30/20 17:37 115 H 24 93 L 11/30/20 17:05 98.4 F 119 H 30 H 181/124 96 General Appearance: no apparent distress, obese Neurologic Exam: alert, oriented x 3, cooperative Respiratory Exam: diminished breath sounds, wheezing Cardiovascular Exam: regular rate/rhythm, normal heart sounds, normal peripheral pulses Gastrointestinal/Abdomen Exam: soft, normal bowel sounds, No tenderness, No mass Extremity Exam: normal inspection, normal range of motion, pelvis stable Skin Exam: normal color, warm, dry, No rash Results - Labs Lab/Micro Results: Lab Results-Last 24 Hours 11/30/20 11/30/20 11/30/20 Range/Units 00:00 17:24 17:35 WBC 14.3 H (4.0-10.5) K/mm3 RBC 4.84 (4.1-5.4) M/mm3 Hgb 14.0 (12.0-16.0) gm/dl Hct 42.4 (35-47) % MCV 87.6 (78-100) fl MCH 28.9 (26-32) pg MCHC 33.0 (32-36) g/dl RDW 15.6 H (11.5-14.0) % Plt Count 333 (150-450) K/mm3 MPV 9.0 (7.5-11.0) fl Gran % 75.2 H (36.0-66.0) % Eos # (Auto) 0.51 H (0-0.5) Absolute Lymphs (auto) 2.22 (1.0-4.6) Absolute Monos (auto) 0.75 (0.0-1.3) Lymphocytes % 15.6 L (24.0-44.0) % Monocytes % 5.3 (0.0-12.0) % Eosinophils % 3.6 (0.00-5.0) % Basophils % 0.3 (0.0-0.4) % Absolute Granulocytes 10.75 H (1.4-6.9) Basophils # 0.04 (0-0.4) PT (9.4-12.5) SECONDS INR (0.8-3.0) APTT (25.1-36.5) SECONDS D-Dimer (215-500) ng/mL Sodium 134 L (137-145) mmol/L Potassium 3.7 (3.5-5.1) mmol/L Chloride 96 L (98-107) mmol/L Carbon Dioxide 25 (22-30) mmol/L Anion Gap 16.8 H (5-15) MEQ/L BUN 9 (7-17) mg/dL Creatinine 0.62 (0.52-1.04) mg/dL Estimated GFR > 60.0 ML/MIN Glucose 284 H (74-106) mg/dL Lactic Acid (0.4-2.0) Calcium 9.6 (8.4-10.2) mg/dL Total Bilirubin 0.40 (0.2-1.3) mg/dL AST 19 (14-36) U/L ALT 20 (0-35) U/L Alkaline Phosphatase 50 (38-126) U/L Troponin I < 0.012 (0.000-0.034) ng/mL NT-Pro-B Natriuret Pep 114 (0-450) pg/mL Serum Total Protein 7.5 (6.3-8.2) g/dL Albumin 4.4 (3.5-5.0) g/dL SARS-CoV-2 (PCR) (NEGATIVE) 11/30/20 11/30/20 11/30/20 Range/Units 17:35 17:35 17:45 WBC (4.0-10.5) K/mm3 RBC (4.1-5.4) M/mm3 Hgb (12.0-16.0) gm/dl Hct (35-47) % MCV (78-100) fl MCH (26-32) pg MCHC (32-36) g/dl RDW (11.5-14.0) % Plt Count (150-450) K/mm3 MPV (7.5-11.0) fl Gran % (36.0-66.0) % Eos # (Auto) (0-0.5) Absolute Lymphs (auto) (1.0-4.6) Absolute Monos (auto) (0.0-1.3) Lymphocytes % (24.0-44.0) % Monocytes % (0.0-12.0) % Eosinophils % (0.00-5.0) % Basophils % (0.0-0.4) % Absolute Granulocytes (1.4-6.9) Basophils # (0-0.4) PT 11.8 (9.4-12.5) SECONDS INR 1.00 (0.8-3.0) APTT 29.5 (25.1-36.5) SECONDS D-Dimer (215-500) ng/mL Sodium (137-145) mmol/L Potassium (3.5-5.1) mmol/L Chloride (98-107) mmol/L Carbon Dioxide (22-30) mmol/L Anion Gap (5-15) MEQ/L BUN (7-17) mg/dL Creatinine (0.52-1.04) mg/dL Estimated GFR ML/MIN Glucose (74-106) mg/dL Lactic Acid 3.8 H (0.4-2.0) Calcium (8.4-10.2) mg/dL Total Bilirubin (0.2-1.3) mg/dL AST (14-36) U/L ALT (0-35) U/L Alkaline Phosphatase (38-126) U/L Troponin I < 0.012 (0.000-0.034) ng/mL NT-Pro-B Natriuret Pep (0-450) pg/mL Serum Total Protein (6.3-8.2) g/dL Albumin (3.5-5.0) g/dL SARS-CoV-2 (PCR) (NEGATIVE) 11/30/20 11/30/20 11/30/20 Range/Units 18:44 18:46 19:49 WBC (4.0-10.5) K/mm3 RBC (4.1-5.4) M/mm3 Hgb (12.0-16.0) gm/dl Hct (35-47) % MCV (78-100) fl MCH (26-32) pg MCHC (32-36) g/dl RDW (11.5-14.0) % Plt Count (150-450) K/mm3 MPV (7.5-11.0) fl Gran % (36.0-66.0) % Eos # (Auto) (0-0.5) Absolute Lymphs (auto) (1.0-4.6) Absolute Monos (auto) (0.0-1.3) Lymphocytes % (24.0-44.0) % Monocytes % (0.0-12.0) % Eosinophils % (0.00-5.0) % Basophils % (0.0-0.4) % Absolute Granulocytes (1.4-6.9) Basophils # (0-0.4) PT (9.4-12.5) SECONDS INR (0.8-3.0) APTT (25.1-36.5) SECONDS D-Dimer 665 H* (215-500) ng/mL Sodium (137-145) mmol/L Potassium (3.5-5.1) mmol/L Chloride (98-107) mmol/L Carbon Dioxide (22-30) mmol/L Anion Gap (5-15) MEQ/L BUN (7-17) mg/dL Creatinine (0.52-1.04) mg/dL Estimated GFR ML/MIN Glucose (74-106) mg/dL Lactic Acid 2.8 H (0.4-2.0) Calcium (8.4-10.2) mg/dL Total Bilirubin (0.2-1.3) mg/dL AST (14-36) U/L ALT (0-35) U/L Alkaline Phosphatase (38-126) U/L Troponin I (0.000-0.034) ng/mL NT-Pro-B Natriuret Pep (0-450) pg/mL Serum Total Protein (6.3-8.2) g/dL Albumin (3.5-5.0) g/dL SARS-CoV-2 (PCR) NEGATIVE (NEGATIVE) 11/30/20 12/01/20 12/01/20 Range/Units 20:30 03:00 03:04 WBC (4.0-10.5) K/mm3 RBC (4.1-5.4) M/mm3 Hgb (12.0-16.0) gm/dl Hct (35-47) % MCV (78-100) fl MCH (26-32) pg MCHC (32-36) g/dl RDW (11.5-14.0) % Plt Count (150-450) K/mm3 MPV (7.5-11.0) fl Gran % (36.0-66.0) % Eos # (Auto) (0-0.5) Absolute Lymphs (auto) (1.0-4.6) Absolute Monos (auto) (0.0-1.3) Lymphocytes % (24.0-44.0) % Monocytes % (0.0-12.0) % Eosinophils % (0.00-5.0) % Basophils % (0.0-0.4) % Absolute Granulocytes (1.4-6.9) Basophils # (0-0.4) PT (9.4-12.5) SECONDS INR (0.8-3.0) APTT (25.1-36.5) SECONDS D-Dimer (215-500) ng/mL Sodium (137-145) mmol/L Potassium (3.5-5.1) mmol/L Chloride (98-107) mmol/L Carbon Dioxide (22-30) mmol/L Anion Gap (5-15) MEQ/L BUN (7-17) mg/dL Creatinine (0.52-1.04) mg/dL Estimated GFR ML/MIN Glucose (74-106) mg/dL Lactic Acid 6.4 H (0.4-2.0) Calcium (8.4-10.2) mg/dL Total Bilirubin (0.2-1.3) mg/dL AST (14-36) U/L ALT (0-35) U/L Alkaline Phosphatase (38-126) U/L Troponin I < 0.012 < 0.012 (0.000-0.034) ng/mL NT-Pro-B Natriuret Pep (0-450) pg/mL Serum Total Protein (6.3-8.2) g/dL Albumin (3.5-5.0) g/dL SARS-CoV-2 (PCR) (NEGATIVE) 12/01/20 12/01/20 12/01/20 Range/Units 03:04 03:04 04:30 WBC 14.1 H (4.0-10.5) K/mm3 RBC 4.74 (4.1-5.4) M/mm3 Hgb 13.7 (12.0-16.0) gm/dl Hct 41.6 (35-47) % MCV 87.8 (78-100) fl MCH 28.9 (26-32) pg MCHC 32.9 (32-36) g/dl RDW 15.4 H (11.5-14.0) % Plt Count 315 (150-450) K/mm3 MPV 9.0 (7.5-11.0) fl Gran % 93.8 H (36.0-66.0) % Eos # (Auto) 0.02 (0-0.5) Absolute Lymphs (auto) 0.62 L (1.0-4.6) Absolute Monos (auto) 0.22 (0.0-1.3) Lymphocytes % 4.4 L (24.0-44.0) % Monocytes % 1.6 (0.0-12.0) % Eosinophils % 0.1 (0.00-5.0) % Basophils % 0.1 (0.0-0.4) % Absolute Granulocytes 13.18 H (1.4-6.9) Basophils # 0.02 (0-0.4) PT (9.4-12.5) SECONDS INR (0.8-3.0) APTT (25.1-36.5) SECONDS D-Dimer (215-500) ng/mL Sodium 132 L (137-145) mmol/L Potassium 4.3 (3.5-5.1) mmol/L Chloride 97 L (98-107) mmol/L Carbon Dioxide 19 L (22-30) mmol/L Anion Gap 20.5 H (5-15) MEQ/L BUN 9 (7-17) mg/dL Creatinine 0.60 (0.52-1.04) mg/dL Estimated GFR > 60.0 ML/MIN Glucose 323 H (74-106) mg/dL Lactic Acid (0.4-2.0) Calcium 9.5 (8.4-10.2) mg/dL Total Bilirubin 0.50 (0.2-1.3) mg/dL AST 26 (14-36) U/L ALT 30 (0-35) U/L Alkaline Phosphatase 58 (38-126) U/L Troponin I < 0.012 (0.000-0.034) ng/mL NT-Pro-B Natriuret Pep (0-450) pg/mL Serum Total Protein 7.5 (6.3-8.2) g/dL Albumin 4.4 (3.5-5.0) g/dL SARS-CoV-2 (PCR) (NEGATIVE) Accuchecks Date 12/01/20 - Radiology Impressions Radiology Exams & Impressions: Radiology Procedures Category Date Time Status CHEST 1 VIEW (PORTABLE) Stat Exams 11/30/20 17:25 Taken CHEST WITH CONTRAST [CT] Stat Exams 11/30/20 20:06 Taken - Other Procedures and Tests Respiratory Therapy 11/30/20 17:37 Respiratory Therapy Assessment DAILY 11/30/20 21:04 Oxygen Nasal Cannula 2 lpm Assessment/Plan (1) Pneumonia Current Visit: Yes Status: Acute Assessment & Plan: continue rocephin/zithromax, elevated lactic acid is likely secondary to diabetes and steroids. will monitor, clinically she is feeling better. Code(s): J18.9 - PNEUMONIA, UNSPECIFIED ORGANISM (2) Bronchospasm, acute Current Visit: Yes Status: Acute Assessment & Plan: nebs, steroids (3) Diabetes mellitus Current Visit: Yes Status: Acute Assessment & Plan: continue toujeo, add sliding scale coverage Code(s): E11.9 - TYPE 2 DIABETES MELLITUS WITHOUT COMPLICATIONS
--- NOTE | 2020-12-01 08:58 | XRAY ---
Indication: Short of breath. Elevated d-dimer. Suspect Covid 19. Multiple contiguous axial images obtained through the chest using 100 cc Isovue 370 contrast and PE protocol. Comparison: None There is adequate opacification of the pulmonary arteries to include the lobar and segmental branches. No pulmonary embolus. Heart not enlarged. Aorta is normal in course and caliber. No pathologic mediastinal/hilar lymphadenopathy. Lungs demonstrates mild patchy groundglass airspace disease bilaterally. Greatest extent seen in both lower lobes. No consolidation or effusion. Bony thorax intact with minimal degenerative changes throughout the spine. Limited upper abdomen demonstrates fatty liver and caudate lobe hepatic cysts versus hemangiomas. Impression: 1. Negative pulmonary embolus. 2. Patchy bilateral groundglass airspace disease. Commonly reported imaging features of Covid 19 pneumonia are present. Other processes such as influenza pneumonia and organizing pneumonia, as can be seen with drug toxicity and connective tissue disease, can cause a similar imaging pattern. 3. Incidental fatty liver and hepatic cysts versus hemangiomas.
--- NOTE | 2020-12-01 09:03 | XRAY ---
Indication: Dyspnea. Suspect Covid 19. Comparison: One day earlier. Portable chest now demonstrates CT proven patchy bibasilar groundglass airspace disease without consolidation/large effusion. Remaining heart and lungs unremarkable.
[2020-12-01] MEDS ORDERED: NON-FORMULARY ITEM (Levothyroxine Sodium [Levothyroxine] 25 MCG) PO SCH (10:00)
[2020-12-01] MEDS ORDERED: NON-FORMULARY ITEM (Lansoprazole [Prevacid] 30 MG) PO SCH (10:00)
[2020-12-01] MEDS ORDERED: INSULIN GLARGINE HUM REC ANLOG 42 UNIT SQ SCH (10:00)
[2020-12-01] MEDS ORDERED: SYNTHROID 25 MCG PO SCH (10:00)
[2020-12-01] MEDS ORDERED: Decadron 4 MG INJ IV SCH (10:00)
[2020-12-01] MEDS ORDERED: Protonix 40MG Tablet PO SCH (10:00)
[2020-12-01] MEDS ORDERED: Bystolic 5 MG PO SCH (10:00)
[2020-12-01] MEDS ORDERED: NON-FORMULARY ITEM (Chlorthalidone [Chlorthalidone] 25 MG) PO SCH (10:00)
[2020-12-01] MEDS ORDERED: Zithromax 500 MG/ 250 ML NaCl Premix 500 MG/250 ML IVPB IV SCH (10:00)
[2020-12-01] MEDS ORDERED: Lantus Insulin SQ SCH (10:00)
[2020-12-01] MEDS ORDERED: ENOXAPARIN SODIUM SQ SCH (10:00)
[2020-12-01] MEDS ORDERED: NON-FORMULARY ITEM (Nebivolol Hcl [Bystolic] 10 MG) PO SCH (10:00)
[2020-12-01] MEDS ORDERED: PROTONIX 40 MG IV IV SCH (10:00)
[2020-12-01] MEDS ORDERED: NON-FORMULARY ITEM PO SCH (10:00)
[2020-12-01] MEDS: Sodium Chloride 0.9% 1000 ML 1,000 ML IV SCH ×2 (10:09→20:32)
[2020-12-01] MEDS ORDERED: PATIENT OWN MEDICATION PO SCH (11:30)
[2020-12-01] MEDS ORDERED: ROCEPHIN 1 Gm-D5w 50 ml Bag** 1 G/50 ML IVPB IV SCH (22:00)
[2020-12-02] MEDS: DUONEB 0.5-3 MG/3 ml Neb IH SCH ×3 (00:51→06:50)
[2020-12-02 05:02] LABS: Absolute Neutrophil Ct (ANC) 9.94 (1.4-6.9); BASOPHIL % 0.2 % (0.0-0.4); Basophil (Absolute #) 0.02 (0-0.4); Eosinophil % 1.4 % (0.00-5.0); Eosinophil (Absolute #) 0.18 (0-0.5); Hematocrit 38.2 % (35-47); Hemoglobin 12.5 gm/dl (12.0-16.0); Lymphocytes % 14.7 % (24.0-44.0); Mean Corpuscular Hemoglobin 29.1 pg (26-32); Mean Corpuscular Hgb Concent. 32.7 g/dl (32-36); Monocyte (Absolute #) 0.88 (0.0-1.3); Monocytes % 6.8 % (0.0-12.0); Neutrophil % 76.9 % (36.0-66.0); Platelet Count 297 K/mm3 (150-450); Red Blood Count 4.29 M/mm3 (4.1-5.4); Red Cell Distribution Width 15.2 % (11.5-14.0); White Blood Count 12.9 K/mm3 (4.0-10.5)
[2020-12-02 05:50] LABS: ALBUMIN 3.9 g/dL (3.5-5.0); ALKALINE PHOSPHATASE 44 U/L (38-126); ANION GAP 14.9 MEQ/L (5-15); BLOOD UREA NITROGEN 14 mg/dL (7-17); CHLORIDE 98 mmol/L (98-107); Calcium 8.8 mg/dL (8.4-10.2); Carbon Dioxide 25 mmol/L (22-30); Creatinine 1 0.63 mg/dL (0.52-1.04); EST GLOMERULAR FILTRATION RATE > 60.0 ML/MIN; Glucose 209 mg/dL (74-106); Potassium 3.7 mmol/L (3.5-5.1); SGOT/AST 15 U/L (14-36); SGPT/ALT 16 U/L (0-35); SODIUM 134 mmol/L (137-145); Total Protein 6.7 g/dL (6.3-8.2)
[2020-12-02] MEDS: Sodium Chloride 0.9% 1000 ML 1,000 ML IV SCH (06:55)
[2020-12-02 07:58] VITALS: BP 125/71; PULSE 86
--- NOTE | 2020-12-02 08:24 | PCM.DS ---
Discharge Summary Date of Admission: 11/30/20 21:42 Admitting Physician: SADAF VALDEZ Primary Care Provider: RAJI JONES Allergies Allergies clemastine fumarate [From Tavist-D] Allergy (Unknown, Verified 11/30/20 17:12) phenylpropanolamine HCl [From Tavist-D] Allergy (Unknown, Verified 11/30/20 17:12) Hospital Summary - Hospital Course Hospital Course: patient feeling much better, her breath sounds are clear and I removed her oxygen during rounds this morning, she was on 1L, on room air she is maintaining saturation of 96-98%. she is in no distress - Vitals & Intake/Output Vital Signs: Vital Signs Temperature 96.2 F 12/02/20 07:57 Pulse Rate 86 12/02/20 07:57 Respiratory Rate 18 12/02/20 07:57 Blood Pressure 125/71 12/02/20 07:57 O2 Sat by Pulse Oximetry 98 12/02/20 07:57 Intake & Output: Intake & Output 11/29/20 11/30/20 12/01/20 12/02/20 11:59 11:59 11:59 11:59 Intake Total 1084 3882 Output Total 1600 2200 Balance -516 1682 Weight 136.078 kg - Lab Result Diagrams: 12/02/20 04:32 12/02/20 04:32 Lab Results-Last 24 Hrs: Lab Results-Last 24 Hours 12/01/20 12/01/20 12/01/20 Range/Units 00:21 04:30 07:31 WBC (4.0-10.5) K/mm3 RBC (4.1-5.4) M/mm3 Hgb (12.0-16.0) gm/dl Hct (35-47) % MCV (78-100) fl MCH (26-32) pg MCHC (32-36) g/dl RDW (11.5-14.0) % Plt Count (150-450) K/mm3 MPV (7.5-11.0) fl Gran % (36.0-66.0) % Eos # (Auto) (0-0.5) Absolute Lymphs (auto) (1.0-4.6) Absolute Monos (auto) (0.0-1.3) Lymphocytes % (24.0-44.0) % Monocytes % (0.0-12.0) % Eosinophils % (0.00-5.0) % Basophils % (0.0-0.4) % Absolute Granulocytes (1.4-6.9) Basophils # (0-0.4) Sodium (137-145) mmol/L Potassium (3.5-5.1) mmol/L Chloride (98-107) mmol/L Carbon Dioxide (22-30) mmol/L Anion Gap (5-15) MEQ/L BUN (7-17) mg/dL Creatinine (0.52-1.04) mg/dL Estimated GFR ML/MIN Glucose (74-106) mg/dL POC Glucometer 307 H 236 H (74 to 106) mg/dL Hemoglobin A1c 8.18 H (4.5-6.0) % Calcium (8.4-10.2) mg/dL Total Bilirubin (0.2-1.3) mg/dL AST (14-36) U/L ALT (0-35) U/L Alkaline Phosphatase (38-126) U/L Serum Total Protein (6.3-8.2) g/dL Albumin (3.5-5.0) g/dL 12/01/20 12/01/20 12/01/20 Range/Units 11:43 16:26 21:05 WBC (4.0-10.5) K/mm3 RBC (4.1-5.4) M/mm3 Hgb (12.0-16.0) gm/dl Hct (35-47) % MCV (78-100) fl MCH (26-32) pg MCHC (32-36) g/dl RDW (11.5-14.0) % Plt Count (150-450) K/mm3 MPV (7.5-11.0) fl Gran % (36.0-66.0) % Eos # (Auto) (0-0.5) Absolute Lymphs (auto) (1.0-4.6) Absolute Monos (auto) (0.0-1.3) Lymphocytes % (24.0-44.0) % Monocytes % (0.0-12.0) % Eosinophils % (0.00-5.0) % Basophils % (0.0-0.4) % Absolute Granulocytes (1.4-6.9) Basophils # (0-0.4) Sodium (137-145) mmol/L Potassium (3.5-5.1) mmol/L Chloride (98-107) mmol/L Carbon Dioxide (22-30) mmol/L Anion Gap (5-15) MEQ/L BUN (7-17) mg/dL Creatinine (0.52-1.04) mg/dL Estimated GFR ML/MIN Glucose (74-106) mg/dL POC Glucometer 253 H 294 H 270 H (74 to 106) mg/dL Hemoglobin A1c (4.5-6.0) % Calcium (8.4-10.2) mg/dL Total Bilirubin (0.2-1.3) mg/dL AST (14-36) U/L ALT (0-35) U/L Alkaline Phosphatase (38-126) U/L Serum Total Protein (6.3-8.2) g/dL Albumin (3.5-5.0) g/dL 12/02/20 12/02/20 12/02/20 Range/Units 04:32 04:32 07:32 WBC 12.9 H (4.0-10.5) K/mm3 RBC 4.29 (4.1-5.4) M/mm3 Hgb 12.5 (12.0-16.0) gm/dl Hct 38.2 (35-47) % MCV 89.0 (78-100) fl MCH 29.1 (26-32) pg MCHC 32.7 (32-36) g/dl RDW 15.2 H (11.5-14.0) % Plt Count 297 (150-450) K/mm3 MPV 9.0 (7.5-11.0) fl Gran % 76.9 H (36.0-66.0) % Eos # (Auto) 0.18 (0-0.5) Absolute Lymphs (auto) 1.90 (1.0-4.6) Absolute Monos (auto) 0.88 (0.0-1.3) Lymphocytes % 14.7 L (24.0-44.0) % Monocytes % 6.8 (0.0-12.0) % Eosinophils % 1.4 (0.00-5.0) % Basophils % 0.2 (0.0-0.4) % Absolute Granulocytes 9.94 H (1.4-6.9) Basophils # 0.02 (0-0.4) Sodium 134 L (137-145) mmol/L Potassium 3.7 (3.5-5.1) mmol/L Chloride 98 (98-107) mmol/L Carbon Dioxide 25 (22-30) mmol/L Anion Gap 14.9 (5-15) MEQ/L BUN 14 (7-17) mg/dL Creatinine 0.63 (0.52-1.04) mg/dL Estimated GFR > 60.0 ML/MIN Glucose 209 H (74-106) mg/dL POC Glucometer 160 H (74 to 106) mg/dL Hemoglobin A1c (4.5-6.0) % Calcium 8.8 (8.4-10.2) mg/dL Total Bilirubin 0.40 (0.2-1.3) mg/dL AST 15 (14-36) U/L ALT 16 (0-35) U/L Alkaline Phosphatase 44 (38-126) U/L Serum Total Protein 6.7 (6.3-8.2) g/dL Albumin 3.9 (3.5-5.0) g/dL Micro Results-Entire Visit: Microbiology 11/30/20 20:30 Blood Culture - Preliminary Blood NO GROWTH TO DATE 11/30/20 20:20 Blood Culture - Preliminary Blood NO GROWTH TO DATE Accuchecks Date 12/02/20 Date 12/01/20 Date 12/01/20 Date 12/01/20 - Radiology Exams Ordered Rad Exams-Entire Visit: Radiology Procedures Category Date Time Status CHEST 1 VIEW (PORTABLE) Stat Exams 11/30/20 17:25 Completed CHEST WITH CONTRAST [CT] Stat Exams 11/30/20 20:06 Completed - Procedures and Test Procedures and Tests throughout Hospitalization: Therapy Orders & Screens 11/30/20 17:37 Respiratory Therapy Assessment DAILY Comment: 11/30/20 21:04 Oxygen Nasal Cannula 2 lpm Comment: 11/30/20 22:29 Flutter Therapy UD Comment: Diagnosis: Pneumonia Discharge Exam General Appearance: no apparent distress, obese Neurologic Exam: alert, oriented x 3 Respiratory Exam: normal breath sounds, lungs clear, No respiratory distress Cardiovascular Exam: regular rate/rhythm, normal heart sounds Gastrointestinal/Abdomen Exam: soft, No tenderness, No mass Extremity Exam: normal inspection, normal range of motion Skin Exam: normal color, warm, dry Final Diagnosis/Problem List - Final Discharge Diagnosis/Problem (1) Pneumonia Current Visit: Yes Status: Acute Code(s): J18.9 - PNEUMONIA, UNSPECIFIED ORGANISM (2) Bronchospasm, acute Current Visit: Yes Status: Acute (3) Diabetes mellitus Current Visit: Yes Status: Acute Code(s): E11.9 - TYPE 2 DIABETES MELLITUS WITHOUT COMPLICATIONS - Discharge Disposition: Home, Self-Care Condition: Stable Prescriptions: New Nebulizer and Compressor [[place] Choice Nebulizer] 1 each MC UD #1 each Prednisone 20 mg [Deltasone 20 mg] 20 mg PO UD #18 tablet Albuterol 2.5 mg/3 ml Neb [Proventil 2.5 mg/3 ml Neb] 2.5 mg IH Q4H PRN PRN #100 PRN Reason: Shortness Of Breath Doxycycline Hyclate 100 mg [Vibramycin 100 MG] 100 mg PO BID #14 tab Continue Potassium Chloride 20 meq PO BID Non-Formulary Drug [Non-Formulary Bulk Item] 1 tab PO DAILY Nebivolol HCl [Bystolic] 10 mg PO DAILY Liraglutide [Victoza 2-Fredrick] 1.8 units SQ DAILY Levothyroxine Sodium [Levothyroxine] 25 mcg PO DAILY Lansoprazole [Prevacid] 30 mg PO DAILY Insulin Glargine,Hum.rec.anlog [Toujeo Max Solostar] 42 units SQ DAILY Chlorthalidone 25 mg PO DAILY Discontinued Amox Tr/Potass Clav. 875 mg [Augmentin 875-125 Tablet] 875 mg PO BID Additional Instructions: return for worsening condition or new complaints. takes meds as directed, f/u 1 week with PCP Follow up with: RAJI JONES NP [Primary Care Provider] -
[2020-12-02 09:03] VITALS: O2SAT 96
== END 2020-12-02 10:20 | disposition home or self-care (01) ==
LOC: ED 17:04 → MED SURG 21:42
PROVIDERS: ADMIT Family Medicine; ATTEND Family Medicine
DX: J18.9 Pneumonia, unspecified organism (principal); J98.01 Acute bronchospasm; R51.9 Headache, unspecified; I10 Essential (primary) hypertension; E11.9 Type 2 diabetes mellitus without complications; Z79.899 Other long term (current) drug therapy; Z20.822 Contact with and (suspected) exposure to COVID-19
CPT/HCPCS: 36415; 71045; 71260; 80053; 82947; 83036; 83605; 83880; 84484; 85025; 85379; 85610; 85730; 87040; 93005; 94640; 94667; 94760; 94762; 96365; 96366; 96374; 99285; 99291; G0378; U0003; J0456; J0696; J1100; J1650; J1817; J3475; A9270-GY

== ENCOUNTER 2021-01-04 13:32 | Emergency (ER) | payer OTHER ==
[2021-01-04] MEDS ORDERED: Sodium Chloride 0.9% 1000 ML 1,000 ML IV SCH (14:30)
[2021-01-04] MEDS ORDERED: Sodium Chloride 0.9% 1000 ML 1,000 ML ONE (14:31)
[2021-01-04 14:52] LABS: Hematocrit 44.7 % (35-47); Mean Cell Volume 88.7 fl (78-100); Mean Corpuscular Hemoglobin 29.8 pg (26-32); Mean Corpuscular Hgb Concent. 33.6 g/dl (32-36); Mean Platelet Volume 9.2 fl (7.5-11.0); Platelet Count 342 K/mm3 (150-450); Red Blood Count 5.04 M/mm3 (4.1-5.4); Red Cell Distribution Width 14.5 % (11.5-14.0); White Blood Count 12.8 K/mm3 (4.0-10.5)
[2021-01-04 15:07] LABS: ALBUMIN 4.6 g/dL (3.5-5.0); ALKALINE PHOSPHATASE 54 U/L (38-126); ANION GAP 18.4 MEQ/L (5-15); BLOOD UREA NITROGEN 19 mg/dL (7-17); CHLORIDE 94 mmol/L (98-107); Calcium 9.9 mg/dL (8.4-10.2); Carbon Dioxide 26 mmol/L (22-30); Creatinine 1 0.71 mg/dL (0.52-1.04); EST GLOMERULAR FILTRATION RATE > 60.0 ML/MIN; Glucose 309 mg/dL (74-106); Potassium 4.3 mmol/L (3.5-5.1); SGOT/AST 22 U/L (14-36); SODIUM 134 mmol/L (137-145); Total Protein 7.5 g/dL (6.3-8.2)
[2021-01-04 15:14] LABS: SGPT/ALT 29 U/L (0-35)
--- NOTE | 2021-01-04 15:18 | XRAY ---
Indication: Pulmonary embolus. Multiple contiguous axial images obtained through the chest using 100 cc Isovue 370 contrast and PE protocol. Comparison: November 30, 2020. There is suboptimal opacification of the pulmonary arteries also slightly degraded by respiration artifact. No obvious central pulmonary embolus. Heart not enlarged. Aorta normal in course and caliber. No pathologic mediastinal/hilar lymphadenopathy. Lungs demonstrates new left lower lobe subsegmental atelectasis/scarring. Stable tiny right costophrenic angle calcified granuloma. No suspicious pulmonary mass, infiltrate, or effusion. Bony thorax intact again with minimal degenerative changes throughout the spine. Limited upper abdomen again demonstrates fatty liver and hepatic cysts versus hemangiomas. Impression: 1. Pulmonary embolus evaluation limited due to suboptimal opacification and respiration artifact. No obvious central pulmonary embolus. 2. No acute cardiopulmonary abnormalities. 3. Again incidental fatty liver and hepatic cysts/hemangiomas.
--- NOTE | 2021-01-04 16:08 | ERPHSYRPT ---
- History of Present Illness Time Seen by Provider: 01/04/21 13:50 Source: patient Patient Subjective Stated Complaint: " I have been short of breath for a while now and it has been really bad this past week. I went to [facility] on Saturday and they gave me steriods and a nebulizer but I'm still so short of breath. They tested me for Covid19 but called me today and told me I'm negative. I've been wearing oxygen at home". Triage Nursing Assessment: Pt presents to ER with complaints of shortness of breath x 1 week. Pt appears to be short of breath and in distress. Pt re spirations are labored and lung sounds are clear but diminished throughout. Pt skin is pale, warm, and dry. Pt denies any nausea, vomiting, or diarrhea. Pt is alert and orientedx3. States has been wearing 2L O2 via NC at all times at home. She states nebulizer treatments QID are not helping her SHOB. Allergies/Adverse Reactions: clemastine fumarate [From Tavist-D] Allergy (Unknown, Verified 01/04/21 13:51) phenylpropanolamine HCl [From Tavist-D] Allergy (Unknown, Verified 01/04/21 13:51) Home Medications: Chlorthalidone 25 mg PO DAILY 11/30/20 [History] Insulin Glargine,Hum.rec.anlog [Touariana Max Solostar] 50 units SQ DAILY 11/30/20 [History] Lansoprazole [Prevacid] 30 mg PO DAILY 11/30/20 [History] Levothyroxine Sodium [Levothyroxine] 25 mcg PO DAILY 11/30/20 [History] Liraglutide [Victoza 2-Fredrick] 1.8 units SQ DAILY 11/30/20 [History] Nebivolol HCl [Bystolic] 10 mg PO DAILY 11/30/20 [History] Non-Formulary Drug [Non-Formulary Bulk Item] 1 tab PO DAILY 11/30/20 [History] Potassium Chloride 20 meq PO BID 11/30/20 [History] Hx Tetanus, Diphtheria Vaccination/Date Given: No Hx Influenza Vaccination/Date Given: Yes Hx Pneumococcal Vaccination/Date Given: No Immunizations Up to Date: Yes Travel Risk - International Travel Have you traveled outside of the country in past 3 weeks: No - Coronavirus Screening Are you exhibiting any of the following symptoms?: Yes Symptoms: Cough: New Onset, Shortness of Breath Close contact with a COVID-19 positive Pt in past 14-21 Days: No - Vaccine Status Have you recieved a Covid-19 vaccination: Yes Certified Legal Investigator: Slated - Vaccination Dates Date of 2cond Vaccination (if applicable): apr 2020 - Review of Systems Constitutional: No Symptoms, No Fever, No Chills Eyes: No Symptoms Ears, Nose, & Throat: No Symptoms Respiratory: No Symptoms, No Cough, No Dyspnea Cardiac: No Symptoms, No Chest Pain, No Edema, No Syncope Abdominal/Gastrointestinal: No Symptoms, No Abdominal Pain, No Nausea, No Vomiting, No Diarrhea Genitourinary Symptoms: No Symptoms, No Dysuria Musculoskeletal: No Symptoms, No Back Pain, No Neck Pain Skin: No Symptoms, No Rash Neurological: No Symptoms, No Dizziness, No Focal Weakness, No Sensory Changes Psychological: No Symptoms Endocrine: No Symptoms Hematologic/Lymphatic: No Symptoms Immunological/Allergic: No Symptoms All Other Systems: Reviewed and Negative - Past Medical History Pertinent Past Medical History: Yes Neurological History: No Pertinent History ENT History: No Pertinent History Cardiac History: Hypertension Respiratory History: No Pertinent History Endocrine Medical History: Diabetes Type II Musculoskeletal History: No Pertinent History GI Medical History: Pancreatitis History: No Pertinent History Psycho-Social History: No Pertinent History Female Reproductive Disorders: No Pertinent History Other Medical History: kidney stones - Past Surgical History Past Surgical History: Yes Neuro Surgical History: No Pertinent History Cardiac: No Pertinent History Respiratory: No Pertinent History Gastrointestinal: Appendectomy, Cholecystectomy Genitourinary: No Pertinent History Musculoskeletal: Other Female Surgical History: No Pertinent History Other Surgical History: knee scoped 3 x, lithotripsy - Social History Smoking Status: Never smoker Exposure to second hand smoke: No Drug Use: none Patient Lives Alone: No Significant Family History: no pertinent family hx - Female History Hx Last Menstrual Period: 12/04/2020 Hx Now: No - Nursing Vital Signs Nursing Vital Signs: Initial Vital Signs Temperature 97.1 F 01/04/21 13:46 Pulse Rate 98 H 01/04/21 13:46 Respiratory Rate 22 01/04/21 13:46 Blood Pressure 138/109 01/04/21 13:46 O2 Sat by Pulse Oximetry 98 01/04/21 13:46 Pain Scale Pain Intensity 0 - Physical Exam General Appearance: no apparent distress, alert Eye Exam: PERRL/EOMI, eyes nml inspection Ears, Nose, Throat Exam: normal ENT inspection, TMs normal, pharynx normal, moist mucous membranes Neck Exam: normal inspection, non-tender, supple, full range of motion Respiratory Exam: normal breath sounds, lungs clear, airway intact, diminished breath sounds, No respiratory distress Cardiovascular Exam: regular rate/rhythm, normal heart sounds, normal peripheral pulses Gastrointestinal/Abdomen Exam: soft, normal bowel sounds, No tenderness, No mass Back Exam: normal inspection, normal range of motion, No CVA tenderness, No vertebral tenderness Extremity Exam: normal inspection, normal range of motion, pelvis stable Neurologic Exam: alert, oriented x 3, cooperative, normal mood/affect, nml cerebellar function, nml station & gait, sensation nml, No motor deficits Skin Exam: normal color, warm, dry, No rash Lymphatic Exam: No adenopathy SpO2 Interpretation: normal SpO2: 98 O2 Delivery: Room Air - Course Nursing assessment & vital signs reviewed: Yes EKG Interpreted by Me: RATE (90), Sinus Rhythm, NORMAL AXIS, NORMAL INTERVALS - CT Exams Chest CT Interpretation: Tele-radiologist Report (Pulmonary embolus evaluation limited due to suboptimal opacification and respiratory artifact. No obvious central pulmonary embolus. No acute cardiopulmonary abnormalities. Incidental liver and hepatic cyst/hemangiomas.) Ordered Tests: Active Orders 24 hr Category Date Time Status Display Card Writer STAT Care 01/04/21 14:28 Completed EKG-ER Only STAT Care 01/04/21 14:28 Completed IV Insertion STAT Care 01/04/21 14:28 Completed Pulse Oximetry (ED) STAT Care 01/04/21 14:28 Completed CHEST WITH CONTRAST [CT] Stat Exams 01/04/21 14:33 Completed BLOOD CULTURE Stat Lab 01/04/21 16:55 Ordered CBC W DIFF Stat Lab 01/04/21 14:40 Completed CMP Stat Lab 01/04/21 14:40 Completed D-DIMER QUANTITATIVE Stat Lab 01/04/21 14:40 Completed Manual Differential NC Stat Lab 01/04/21 14:40 Completed TROPONIN Q3H Lab 01/04/21 14:40 Completed Respiratory Therapy Assessment DAILY RT 01/04/21 16:38 Completed Medication Summary Generic Name Dose Route Start Last Admin Trade Name Freq PRN Reason Stop Dose Admin Azithromycin / Sodium Chloride 250 mls @ 125 mls/hr 01/04/21 16:56 IV 01/04/21 18:55 STAT ONE Discontinued Medications Generic Name Dose Route Start Last Admin Trade Name [place] PRN Reason Stop Dose Admin Albuterol/Ipratropium 3 ml 01/04/21 16:16 01/04/21 16:30 Ipratropium/Albuterol Sulfate 3 Ml Ampul.Neb IH 01/04/21 16:17 3 ml STAT ONE Administration Albuterol/Ipratropium Confirm 01/04/21 16:20 Ipratropium/Albuterol Sulfate 3 Ml Ampul.Neb Administered 01/04/21 16:21 Dose 3 ml IH .STK-MED ONE Methylprednisolone Sodium 0 mg 01/04/21 16:11 01/04/21 16:16 Succinate 125 mg/ Sterile IV 01/04/21 16:12 125 mg Water 2 ml STAT ONE Administration Sodium Chloride 1,000 mls @ 100 mls/hr 01/04/21 14:30 01/04/21 14:32 Sodium Chloride 0.9% 1000 Ml IV 02/03/21 14:29 100 mls/hr .Q10H SUMMER Administration Ceftriaxone Sodium/Dextrose 2 g in 50 mls @ 100 mls/hr 01/04/21 16:56 01/04/21 17:51 Rocephin 2 Gm-D5w 50ml Bag IV 01/04/21 17:25 Infused STAT STA Infusion Ceftriaxone Sodium/Dextrose Confirm 01/04/21 17:11 Rocephin 2 Gm-D5w 50ml Bag Administered 01/04/21 17:12 Dose 2 g in 50 mls @ ud IV .STK-MED ONE Sodium Chloride Confirm 01/04/21 14:31 Sodium Chloride 0.9% 1000 Ml Administered 01/04/21 14:32 Dose 1,000 mls @ ud .ROUTE .STK-MED ONE Methylprednisolone Sodium Succinate Confirm 01/04/21 16:14 Methylprednis Sod Succ 125 Mg/2 Ml Vial Administered 01/04/21 16:15 Dose 125 mg .ROUTE .STK-MED ONE Sterile Water Confirm 01/04/21 16:14 Water For Injection,Sterile 10 Ml Vial Administered 01/04/21 16:15 Dose 10 ml IJ .STK-MED ONE Lab/Rad Data: Laboratory Result Diagrams 01/04/21 14:40 01/04/21 14:40 Laboratory Results 01/04/21 01/04/21 01/04/21 Range/Units 14:40 14:40 14:40 WBC (4.0-10.5) K/mm3 RBC (4.1-5.4) M/mm3 Hgb (12.0-16.0) gm/dl Hct (35-47) % MCV (78-100) fl MCH (26-32) pg MCHC (32-36) g/dl RDW (11.5-14.0) % Plt Count (150-450) K/mm3 MPV (7.5-11.0) fl Segmented Neutrophils (36.0-66.0) % Lymphocytes (Manual) (24-44) % Monocytes (Manual) (0.0-12.0) % Platelet Estimate (NORMAL) RBC Morphology Microcytosis D-Dimer 238 (215-500) ng/mL Sodium 134 L (137-145) mmol/L Potassium 4.3 (3.5-5.1) mmol/L Chloride 94 L (98-107) mmol/L Carbon Dioxide 26 (22-30) mmol/L Anion Gap 18.4 H (5-15) MEQ/L BUN 19 H (7-17) mg/dL Creatinine 0.71 (0.52-1.04) mg/dL Estimated GFR > 60.0 ML/MIN Glucose 309 H (74-106) mg/dL Calcium 9.9 (8.4-10.2) mg/dL Total Bilirubin 0.60 (0.2-1.3) mg/dL AST 22 (14-36) U/L ALT 29 (0-35) U/L Alkaline Phosphatase 54 (38-126) U/L Troponin I < 0.012 (0.000-0.034) ng/mL Serum Total Protein 7.5 (6.3-8.2) g/dL Albumin 4.6 (3.5-5.0) g/dL 01/04/21 Range/Units 14:40 WBC 12.8 H (4.0-10.5) K/mm3 RBC 5.04 (4.1-5.4) M/mm3 Hgb 15.0 (12.0-16.0) gm/dl Hct 44.7 (35-47) % MCV 88.7 (78-100) fl MCH 29.8 (26-32) pg MCHC 33.6 (32-36) g/dl RDW 14.5 H (11.5-14.0) % Plt Count 342 (150-450) K/mm3 MPV 9.2 (7.5-11.0) fl Segmented Neutrophils 81 H (36.0-66.0) % Lymphocytes (Manual) 17 L (24-44) % Monocytes (Manual) 2 (0.0-12.0) % Platelet Estimate NORMAL (NORMAL) RBC Morphology ABNORMAL Microcytosis 1+ D-Dimer (215-500) ng/mL Sodium (137-145) mmol/L Potassium (3.5-5.1) mmol/L Chloride (98-107) mmol/L Carbon Dioxide (22-30) mmol/L Anion Gap (5-15) MEQ/L BUN (7-17) mg/dL Creatinine (0.52-1.04) mg/dL Estimated GFR ML/MIN Glucose (74-106) mg/dL Calcium (8.4-10.2) mg/dL Total Bilirubin (0.2-1.3) mg/dL AST (14-36) U/L ALT (0-35) U/L Alkaline Phosphatase (38-126) U/L Troponin I (0.000-0.034) ng/mL Serum Total Protein (6.3-8.2) g/dL Albumin (3.5-5.0) g/dL - Progress Progress: improved Progress Note: Patient reassessed. She continues to feel short of breath. She received a DuoNeb and steroids but states that this has not significantly helped her. We ambulated patient in our ED and assess her oxygen saturation. She did not desaturate however her breathing rate increased and became significantly labored. CTA chest negative for PE. There appears to be new fibrosis versus atelectasis. In light of patient's persistent symptoms patient will require admission. Case discussed with Dr. Gutierres who feels that patient may require pulmonary consultation. He advised transfer to [facility]. We are currently working on a transfer at this time. Patient states she does not want to go home. She feels she is too short of breath to go home. We are working on transferring patient to [facility] at this time. 01/04/21 16:[address] Berman who accepts transfer. We are currently awaiting a bed assignment 01/04/21 17:07 Portions of this note were created with voice recognition technology. There may be grammatical, spelling, punctuation or sound alike errors 01/04/21 22:39 Discussed with DrHarrison: Harley Will see patient in: office Counseled pt/family regarding: lab results, diagnosis, rad results - Departure Departure Disposition: Home Clinical Impression: Lung granuloma, Arthritis of spine, Fatty liver, Hepatic cyst versus angioma, Shortness of breath, Leukocytosis, High anion gap metabolic acidosis, Hypoglycemia Condition: Stable Critical Care Time: No Referrals: RAJI JONES, ADMISSION SPECIALIST [Primary Care Provider] - Follow up/PCP as directed
[2021-01-04] MEDS ORDERED: solu-MEDROL 125 MG, Sterile H2O 10 ml 2 ML IV ONE ×2 (16:11)
[2021-01-04] MEDS ORDERED: Sterile H2O 10 ml IJ ONE (16:14)
[2021-01-04] MEDS ORDERED: solu-MEDROL ONE (16:14)
[2021-01-04] MEDS ORDERED: DUONEB 0.5-3 MG/3 ml Neb IH ONE ×2 (16:16→16:20)
[2021-01-04 16:38] LABS: Lymphocytes 17 % (24-44); Monocyte 2 % (0.0-12.0); Neutrophils 81 % (36.0-66.0); Platelet Estimate NORMAL (NORMAL); Total Cells Counted 100
[2021-01-04 16:39] LABS: Microcytosis 1+
[2021-01-04] MEDS ORDERED: ROCEPHIN 2 Gm-D5w 50ML BAG** 2 G/50 ML IVPB IV STA (16:56)
[2021-01-04] MEDS ORDERED: ZITHROMAX IV*** 0 MG in Sodium Chloride 0.9% 250 ML 250 ML IV ONE (16:56)
[2021-01-04 17:03] VITALS: O2SAT 98
[2021-01-04] MEDS ORDERED: ROCEPHIN 2 Gm-D5w 50ML BAG** 2 G/50 ML IVPB IV ONE (17:11)
[2021-01-04 18:01] VITALS: BP 126/80; PULSE 98
== END 2021-01-04 18:01 | disposition short-term general hospital (02) ==
LOC: ED 13:32
DX: J84.10 Pulmonary fibrosis, unspecified (principal); M47.9 Spondylosis, unspecified; K76.0 Fatty (change of) liver, not elsewhere classified; K76.89 Other specified diseases of liver; D18.09 Hemangioma of other sites; R06.02 Shortness of breath; D72.829 Elevated white blood cell count, unspecified; E87.2 Acidosis; E16.2 Hypoglycemia, unspecified; I10 Essential (primary) hypertension
CPT/HCPCS: 36000; 36415; 71260; 80053; 84484; 85025; 85379; 93005; 93041; 94640; 94760; 96360; 96361; 96374; 99285; J0696; J2930; A9270-GY